=== PATIENT | female | born 1950 | race Caucasian/White ===

== ENCOUNTER → 2020-10-29 | Outpatient (CLI) | payer OTHER ==
[~2020-10-29] MED LIST: AMITRIPTYLINE H10 M1 PO; ASPIRIN EC325 M1 PO; ATORVASTATIN CA20 MG PO; B-100 COMPLEX1 EAC1 PO; BENADRYL25 MG PO; CALCIUM 600 +1 EAC1 PO; CEFDINIR300 MG PO; CHANTIX1 MG; CHROMIUM400 MCG PO; COLACE100 MG PO; COUMADIN 2 MG TA2 M1 PO; DOXYCYCLINE 10100 M1 PO; ENOXAPARIN30 MG/0.3 SQ; GARLIC OIL1 EACH PO; GUAIFENESIN/COD10 M1 NG; HYDROCODON-ACE1 EAC5 PO; HYDROCODON-ACE1 EAC7 PO; IBUPROFEN 200200 M1 PO; LIPITOR20 MG PO; METOPROLOL SUCC25 M1 PO; MOBIC7.5 M1 PO; MS CONTIN15 MG PO; NICOTINE TRANSD21 M1 TD; NORCO 5-325 TA1 EACH PO; NORCO 7.5-3251 EACH PO; OSTEO BI-FLEX1 EAC1 PO; PERCOCET 5-3251 EACH PO; TOPROL XL25 MG PO; VITAMIN A10000 UNI3 PO; VITAMIN D1000 UNI1 PO; VITAMIN E600 UNIT PO; VITAMINC500 PO; ZINC CHELATE50 MG PO; ZOFRAN4 MG PO
== END ==
LOC: SJCVC 11:43
PROVIDERS: ATTEND Nuclear Medicine Nuclear Cardiology
DX: I73.9 Peripheral vascular disease, unspecified (principal); E78.00 Pure hypercholesterolemia, unspecified; I25.10 Atherosclerotic heart disease of native coronary artery without angina pectoris; I10 Essential (primary) hypertension; G89.29 Other chronic pain; K21.9 Gastro-esophageal reflux disease without esophagitis; E78.5 Hyperlipidemia, unspecified; Z90.49 Acquired absence of other specified parts of digestive tract; F17.200 Nicotine dependence, unspecified, uncomplicated; Z95.5 Presence of coronary angioplasty implant and graft; Z88.8 Allergy status to other drugs, medicaments and biological substances; Z79.82 Long term (current) use of aspirin; Z79.899 Other long term (current) drug therapy; Z82.49 Family history of ischemic heart disease and other diseases of the circulatory system

== ENCOUNTER → 2020-11-17 | Outpatient (CLI) | payer OTHER ==
[~2020-11-17] MED LIST changes: +ASA81BEC PO; +FLONASE 0.05%50 MCG NASAL; +IMDUR 30 MG TAB30 M1 PO; +IPRAT-ALBUT 0.5-3 ML INH; +LYRICA200 MG PO; +MEGARED OMEGA-1 EAC1 PO; +ROPINIROLE HCL2 MG PO; +ROSUVASTATIN CA20 MG PO; +VITAMIN B-121000 MC2 PO
== END ==
LOC: SJCVCIMAG 07:46
PROVIDERS: ATTEND Nuclear Medicine Nuclear Cardiology
DX: I71.4 Abdominal aortic aneurysm, without rupture (principal); I65.23 Occlusion and stenosis of bilateral carotid arteries; I70.8 Atherosclerosis of other arteries; I70.201 Unspecified atherosclerosis of native arteries of extremities, right leg; I77.9 Disorder of arteries and arterioles, unspecified; I25.10 Atherosclerotic heart disease of native coronary artery without angina pectoris; I10 Essential (primary) hypertension; E78.00 Pure hypercholesterolemia, unspecified; J45.909 Unspecified asthma, uncomplicated; G89.29 Other chronic pain; K21.9 Gastro-esophageal reflux disease without esophagitis; E78.5 Hyperlipidemia, unspecified; E66.01 Morbid (severe) obesity due to excess calories; M85.80 Other specified disorders of bone density and structure, unspecified site; G62.9 Polyneuropathy, unspecified; F17.200 Nicotine dependence, unspecified, uncomplicated; Z79.82 Long term (current) use of aspirin; Z79.899 Other long term (current) drug therapy; Z85.038 Personal history of other malignant neoplasm of large intestine; Z88.8 Allergy status to other drugs, medicaments and biological substances

== ENCOUNTER 2020-11-27 06:31 | Observation (INO) | payer OTHER ==
[~2020-11-27] VITALS: Ht 160 cm; Wt 99.8 kg
[~2020-11-27 06:31] MED LIST changes: -ASA81BEC PO; -FLONASE 0.05%50 MCG NASAL; -IMDUR 30 MG TAB30 M1 PO; -IPRAT-ALBUT 0.5-3 ML INH; -LYRICA200 MG PO; -MEGARED OMEGA-1 EAC1 PO; -ROPINIROLE HCL2 MG PO; -ROSUVASTATIN CA20 MG PO; -VITAMIN B-121000 MC2 PO
[2020-11-27 07:43] VITALS: BP 111/60
[2020-11-27 07:43] LABS: HEMATOCRIT 40.6 % (37.0-47.0); HEMOGLOBIN 13.3 gm/dL (12.0-15.0); MCH 30.6 pg (26.0-34.0); MCHC 32.8 g/dL (28.0-37.0); MCV 93.1 fL (80.0-100.0); RBC 4.35 mil/uL (4.20-5.00); RDW 14.2 % (10.5-14.5); WBC 13.1 thou/uL (4.0-11.0)
[2020-11-27 07:50] LABS: CALCIUM 8.9 mg/dL (8.5-10.1); CREATININE 0.7 mg/dL (0.6-1.0); POTASSIUM 4.4 mmol/L (3.5-5.1)
[2020-11-27] MEDS ORDERED: ASA81BEC PO (08:01)
[2020-11-27] MEDS ORDERED: FLONASE 0.05%50 MCG NASAL (08:04)
[2020-11-27] MEDS ORDERED: IPRAT-ALBUT 0.5-3 ML INH (08:07)
[2020-11-27] MEDS ORDERED: IMDUR 30 MG TAB30 M1 PO (08:08)
[2020-11-27] MEDS ORDERED: MEGARED OMEGA-1 EAC1 PO (08:09)
[2020-11-27] MEDS ORDERED: LYRICA200 MG PO (08:11)
[2020-11-27] MEDS ORDERED: ROSUVASTATIN CA20 MG PO (08:12)
[2020-11-27] MEDS ORDERED: ROPINIROLE HCL2 MG PO (08:12)
[2020-11-27] MEDS ORDERED: VITAMIN B-121000 MC2 PO (08:13)
--- NOTE | 2020-11-27 13:20 | EKG ---
[address] [address] ELECTROCARDIOGRAM REPORT Name: DIA AVILA Room #: 213-P [facility]..#: [id number] Admission: 11/27/20 Attend Phys: Lan Ho Discharge: Date of : 48 Report #: [id number] [facility] Test Date: 2020-11-27 Test Time: 11:13:36 Pat Name: DIA AVILA Department: Room: 213 Gender: F Chipper: eagle : 1950 Requested By: Lan Ho Order Number: [id number] MD: Derek Moss Measurements Intervals [place] Rate: 72 P: 70 WV: 166 QRS: 3 QRSD: 82 T: 59 QT: 399 QTc: 437 Interpretive Statements Sinus rhythm Abnormal R-wave progression, early transition Compared to ECG 03/22/2012 22:52:59 No significant changes Electronically Signed On 11-27-2020 13:19:26 CDT by Derek Moss [email or web address] <ELECTRONICALLY SIGNED> By: Derek Moss MD, [facility] 11/27/20 1319 1113 1113 Derek Moss MD, FACC /EPI
[2020-11-27 19:25] VITALS: BP 123/37
--- NOTE | 2020-11-27 19:52 | NUR ---
PT ARRIVED FROM [employer] [employer] APPROX 1230. L GROIN CDI NO HEMATOMA. SPOUSE AT BEDSIDE. ADMISSION COMPLETE BY DYLAN SMITH. THIS RN AGREES WITH ALL CURRENT DOCUMENATION. PLAN FOR POSSIBLE CATH IN AM. NPO AFTER MIDNIGHT. PT OFF BR [place] WELL. GROIN REMAINS CDI. NO HEMATOMA. CONT POC, REPORT PASSED TO NOC LUIS.
[2020-11-27 23:58] VITALS: BP 122/50
[2020-11-28] VITALS (15 sets, daily range): BP systolic 11–193; BP diastolic 51–98
--- NOTE | 2020-11-28 03:44 | NUR ---
SLEPT PART OF SHIFT. PAIN MEDICATIONS GIVEN NEEDED. WORKING ON GOALS AND PLAN OF CARE FOR NOC. NPO FOR AM HEART CATH. MEDS GIVEN WITH SIP OF WATER NEEDED. LEFT GROIN DSG C/D/I AND NO HEMOTOMA OR BLEEDING NOTED. SITE REMAINS SOFT. ENCOURAGED PATINET TO TURN ON SIDE AT TIMES. CONTINUE TO ASSES.
[2020-11-28 05:18] LABS: HEMATOCRIT 40.7 % (37.0-47.0); HEMOGLOBIN 13.7 gm/dL (12.0-15.0); MCH 31.9 pg (26.0-34.0); MCHC 33.6 g/dL (28.0-37.0); RBC 4.28 mil/uL (4.20-5.00); RDW 14.3 % (10.5-14.5); WBC 15.9 thou/uL (4.0-11.0)
[2020-11-28 05:29] LABS: CALCIUM 8.7 mg/dL (8.5-10.1); CREATININE 0.6 mg/dL (0.6-1.0); POTASSIUM 4.6 mmol/L (3.5-5.1)
--- NOTE | 2020-11-28 17:51 | NUR ---
Assumed care of pt this AM. Pt is A&O x4, anxious & forgetful. Pt went for cath today, no stents placed. Pt had paroxysmal AFib during stent, received back to unit anxious, crying, c/o chest pain, HTN. EKG done & Dr. Ho notified. Ordered 2mg Morphine, however, pt did not need after EKG done & medication verified. Rt groin site is clean, dry & intact. Currently on 2L NC. Denies any current chest pain. SR on the monitor. Denies any other needs at this time.
[2020-11-29 00:01] VITALS: BP 129/59
[2020-11-29 04:42] VITALS: BP 135/51
[2020-11-29 05:45] LABS: CALCIUM 8.7 mg/dL (8.5-10.1); CREATININE 0.7 mg/dL (0.6-1.0); POTASSIUM 4.3 mmol/L (3.5-5.1)
--- NOTE | 2020-11-29 08:04 | NUR ---
PT RESTING QUIETLY IN BED THRU THE NOC, NO C/O PAIN, VSS, BILAT GROINS REMAIN CDI, FORGETFUL AND KEEPS SETTING BED ALARM OFF, UP WITH ASSIST OF CANE, IV FLUIDS FINISHED, PT HOPES TO GO HOME TODAY, REPORT GIVEN TO NEXT SHIFT TO CON'T PPOC.
[2020-11-29] MEDS ORDERED: CLOPIDOGREL75 MG PO (09:11)
--- NOTE | 2020-11-29 10:56 | NUR ---
Assumed care of pt this AM. Pt is A&O x4, forgetful. Pt is up ad dee to the bathroom. Pt is anxious to get out of the hospital today, waiting for cardiology to clear pt. SR on the monitor. Pt uses walker to ambulate & has been ambulating hallway. Rt & Lt groin site clean, dry, and intact. No other concerns at this time. Will continue to assess pt needs.
[2020-11-29] MEDS ORDERED: TOPROL XL25 MG PO (11:49)
[2020-11-29 11:53] VITALS: BP 134/65
--- NOTE | 2020-11-29 12:09 | NUR ---
DISCHARGE NOTE: pt discharged to home after cardiology approval. IV & tele discontinued. Discharge instructions & prescription given to pt. Educated pt & over mynx dressing & after care. Pt & spouse verbalized understanding & were given copy of instructions. Pt wheeled to ER entrance & left via personal vehicle with .
--- NOTE | 2020-12-01 22:37 | D ---
[facility] [place] [address] DISCHARGE SUMMARY Name: DIA AVILA Room #: 213-P [facility] Ro[facility] Carey#: [id number] Admission: 11/27/20 Attend Phys: Lan Ho Discharge: 11/29/20 Date of : 48 Report #: [id number] THIS REPORT FOR: cc: Maribel Reyna MD, Stephanie B. MD Lammoglia,Lan oDan MD ~ DATE OF SERVICE: 11/29/2020 ADMITTING DIAGNOSES: 1. Crescendo angina. 2. Peripheral vascular disease. 3. Hypertension. 4. Gastroesophageal reflux disease. PROCEDURES PERFORMED: 1. Lower extremity angiography with stent placement. 2. Left heart catheterization. DISCHARGE MEDICATIONS: 1. Home meds. 2. The following changes: Metoprolol succinate 25 mg p.o. twice daily. 3. Clopidogrel 75 mg daily. FOLLOWUP: Dr. Ho in 4 weeks, but to call the office next week. BRIEF CLINICAL HISTORY: ____ in the chart. HOSPITAL COURSE: She was admitted to the hospital. We will rule out for myocardial infarction. She underwent a left heart catheterization, which demonstrated moderate coronary artery disease. During her catheterization, she again developed chest discomfort associated with atrial fibrillation with a rapid ventricular response. This symptom of discomfort resolved when resolution of tachyarrhythmias. Her coronary anatomy was moderate without severe obstructive lesions and was felt to be treated medically. The new onset atrial fibrillation was noted, and discussion with the patient about triple therapy was carried forth. In view of the higher risk of bleeding, the patient and spouse and myself decided that we would continue dual antiplatelet treatment until next week to 2 weeks in which case, then we would discontinue the aspirin and initiate full anticoagulation for CHADS-VASc 3 risk. The patient is now being discharged in improved and stable condition, to follow up as previously stated with the previously stated discharge instructions and medications. <ELECTRONICALLY SIGNED> By: Lan Ho MD 12/01/20 2237 1045 1127 Lan Ho MD /nt
--- NOTE | 2020-12-02 07:32 | EKG ---
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1950 Requested By: Lan Ho Order Number: [id number] MD: Derek Moss Measurements Intervals [place] Rate: 79 P: 69 MO: 155 QRS: -5 QRSD: 79 T: 58 QT: 377 QTc: 433 Interpretive Statements Sinus rhythm Abnormal R-wave progression, early transition Compared to ECG 11/27/2020 11:13:36 No significant changes Electronically Signed On 12-02-2020 7:32:19 CDT by Derek Moss [email or web address] <ELECTRONICALLY SIGNED> By: eDrek Moss MD, [facility] 12/02/20 0732 1220 1220 Derek Moss MD, [facility] /EPI
--- NOTE | 2020-12-12 12:41 | CATHLAB ---
[facility] [place] [address] INVASIVE PROCEDURE REPORT Name: DIA AVILA Room #: 213-P [facility] Carey#: [id number] Admission: 11/27/20 Attend Phys: Lan Ho Discharge: 11/29/20 Date of : 48 Report #: [id number] THIS REPORT FOR: cc: Maribel Reyna MD, Stephanie B. MD Lammoglia, Francisco J. MD ~ APPROVED REPORT Study performed: 11/28/2020 07:51:13 Patient Details Patient Status: In-Patient Room #: The patient is a 70 year-old female Event Personnel Lan Ho Supervisor Filter Assembly, [place], RTR Monitor, Treva Mcdonnell, Lillie Schmitt, Cherelle Bravo RN teaching young Performed Art Access - R femoral artery* Left Heart Cath w/or w/o Coronaries [id number] [facility] [address] Initial Mod Sed Same Phys/QHP Gr5y [id number] 94428 Mod Sed Same Phys/QHP Ea [id number] Hemostasis w/ Mynx, supervision of conscious sedation Indication Positive stress test, Chest pain Procedure Narrative The Right Groin^ was infiltrated with 1% Lidocaine subcutaneous anesthesia. A PINNACLE 6FR Sheath #[id number] sheath was inserted into the RFA^. Coronary angiography was performed using coronary diagnostic catheters. The right coronary system was accessed and visualized with a JR4 catheter. The left coronary system was accessed and visualized with a JL4 catheter. The left ventricle was accessed and visualized with a JR4 catheter. Closure device was deployed with a Fr MYNX CONTROL 6F/7F L#[id number]. The patient tolerated the procedure well and there were no complications associated with the procedure. There was no hematoma. Intraoperative Conscious Sedation Sedation start time: 10:16 Case end Time: 10:58 Versed 3 mg [facility] [place] [address] INVASIVE PROCEDURE REPORT Name: DIA AVILA Room #: 213-P [facility].#: [id number] Admission: 11/27/20 Attend Phys: Lan Calero Discharge: 11/29/20 Date of : 48 Report #: [id number] Fluoro Time: 4.50 minutes Dose: DAP 5842.10 cGycm2 689 mGy Contrast Type and Amount: Omnipaque 70 ml Coronary Angiography The patient's coronary anatomy is right dominant. Diagnostic Cath Left Main Moderate caliber vessel normal origin bifurcates left anterior same of circumflex. Short in length but no high-grade lesions are noted LAD Small caliber type II vessel which courses in the anterior interventricular sulcus. There is a proximal segment is prior stent is noted with approximately 50% in-stent restenosis. A small to moderate caliber diagonal branch arises because on the anterolateral wall free of high-grade disease. The LAD proper then continues in the interventricular sulcus to [place] in the apex is a small caliber vessel that tapers with mild luminal irregularity Diagonal 1 Small caliber vessel without significant high-grade lesions noted Diagonal 2 Diminutive size vessel without significant obstructive plaque Circumflex Moderate caliber vessel with almost separate origin bifurcates early into marginal branch which is moderate in size and free of high-grade disease. The circumflex continues in AV groove posteriorly giving rise to a second marginal and terminates the posterior wall small caliber vessel OM1 Small moderate caliber vessel coursing on the lateral aspect heart free of high-grade disease OM2 Small caliber vessel with a significant high-grade obstructive lesion Right Coronary Moderate caliber dominant vessel of normal origin has mild plaquing at its origin and continues in the AV groove with is a less than 50% eccentric lesion. The vessel continues to the acute margin having giving rise to atrium and ventricular branches. It continues to the crux of the heart gives rise to posterior descending artery after which continues with a small posterior wall branch and a small to moderate posterior lateral branch. No high-grade lesions are noted. R PDA Small to moderate caliber vessel tortuous in its course in the posterior interventricular sulcus towards the apex free of high-grade disease Left Ventriculography Left Ventriculography was not performed. [address] [address] INVASIVE PROCEDURE REPORT Name: DIA AVILA Room #: 213-P [facility] M.R.#: [id number] Admission: 11/27/20 Attend Phys: Lan Calero Discharge: 11/29/20 Date of : 48 Report #: [id number] Hemodynamics The aortic pressure is 189/91 mmHg with a mean of 133 mmHg. The left ventricular pressure is 112/2 mmHg with a mean of mmHg. The left ventricular end diastolic pressure is 8 mmHg. Conclusion 1. Coronary disease moderate with a proximal LAD tapering and in-stent restenosis of approximately 50% and moderate RCA lesion 2. Normal hemodynamics Recommendations Cardiac Risk Reduction Program Aggressive Medical Therapy <ELECTRONICALLY SIGNED> By: Lan Ho MD 12/12/20 1241 1241 1241 Lan Ho MD /INF
== END 2020-11-29 12:17 | disposition home or self-care (01) ==
LOC: CATH 06:31 → 2N 10:05 → CATH 11:13 → 2N 11-29 12:17
PROVIDERS: Nuclear Medicine Nuclear Cardiology; Nurse Practitioner Adult Health; ADMIT Internal Medicine; ATTEND Internal Medicine
DX: I25.110 Atherosclerotic heart disease of native coronary artery with unstable angina pectoris (principal); I70.201 Unspecified atherosclerosis of native arteries of extremities, right leg; I10 Essential (primary) hypertension; I70.1 Atherosclerosis of renal artery; E78.00 Pure hypercholesterolemia, unspecified; F17.210 Nicotine dependence, cigarettes, uncomplicated; Z79.82 Long term (current) use of aspirin; Z79.899 Other long term (current) drug therapy

== ENCOUNTER → 2020-12-31 | Outpatient (CLI) | payer OTHER ==
[~2020-12-31] MED LIST changes: +ASA81BEC PO; +CLOPIDOGREL75 MG PO; +FLONASE 0.05%50 MCG NASAL; +IMDUR 30 MG TAB30 M1 PO; +IPRAT-ALBUT 0.5-3 ML INH; +LYRICA200 MG PO; +MEGARED OMEGA-1 EAC1 PO; +ROPINIROLE HCL2 MG PO; +ROSUVASTATIN CA20 MG PO; +VITAMIN B-121000 MC2 PO
== END ==
LOC: SJCVCIMAG
PROVIDERS: ATTEND Nuclear Medicine Nuclear Cardiology
DX: I73.9 Peripheral vascular disease, unspecified (principal); I71.4 Abdominal aortic aneurysm, without rupture; I77.9 Disorder of arteries and arterioles, unspecified; I25.10 Atherosclerotic heart disease of native coronary artery without angina pectoris; I10 Essential (primary) hypertension; E78.00 Pure hypercholesterolemia, unspecified; E66.01 Morbid (severe) obesity due to excess calories; J45.909 Unspecified asthma, uncomplicated; M54.50 Low back pain, unspecified; G89.29 Other chronic pain; K21.9 Gastro-esophageal reflux disease without esophagitis; E78.5 Hyperlipidemia, unspecified; G62.9 Polyneuropathy, unspecified; M85.80 Other specified disorders of bone density and structure, unspecified site; G47.30 Sleep apnea, unspecified; F17.210 Nicotine dependence, cigarettes, uncomplicated; Z78.0 Asymptomatic menopausal state; Z79.82 Long term (current) use of aspirin; Z79.899 Other long term (current) drug therapy; Z82.49 Family history of ischemic heart disease and other diseases of the circulatory system; Z88.8 Allergy status to other drugs, medicaments and biological substances

== ENCOUNTER → 2020-12-31 | Outpatient (CLI) | payer OTHER ==
[2020-12-31 09:52] LABS: CREATININE 0.6 mg/dL (0.6-1.0)
== END ==
LOC: CAT 09:06
PROVIDERS: ATTEND Nuclear Medicine Nuclear Cardiology
DX: Z01.812 Encounter for preprocedural laboratory examination (principal); I71.4 Abdominal aortic aneurysm, without rupture; I25.10 Atherosclerotic heart disease of native coronary artery without angina pectoris; K76.89 Other specified diseases of liver; I77.1 Stricture of artery